=== PATIENT | male | born 1960 | race Caucasian/White ===

== ENCOUNTER 2018-01-27 17:20 | Inpatient (IN) | payer OTHER ==
[~2018-01-27] VITALS: Ht 185.4 cm; Wt 113.4 kg
--- NOTE | 2018-01-27 17:30 | NUR ---
PATIENT BIB AFTER CALLED 911 AFTER PATIENT ADMITTED TO [facility]DOSING ON [facility] AND DRANK A BOTTLE OF WISKEY IN A SUICIDE ATTEMPT. PATIENT CONFIRMED THIS INFORMATION. PATIENT LETHARGIC ALERT TO SELF AND WHY HE IS HERE. PATIENT IS COVERED IN VOMIT AND STATES HE VOMITED 2 HOURS AFTER INGESTING PILLS/DRINK. [employer] EMERGENCY SERVICES MANAGER IV INSERTED LEFT HAND #20 PATENT. AT BEDSIDE
[2018-01-27 17:53] LABS: BASOPHILS # (AUTO) 0.1 /CMM (0.0-0.2); BASOPHILS % (AUTO) 0.7 % (0.0-2.0); EOSINOPHILS % (AUTO) 0.7 % (0.0-6.0); HEMATOCRIT 49 % (39-51); HEMOGLOBIN 16.5 g/dL (13.5-17.5); LYMPHOCYTES # (AUTO) 3.5 /CMM (0.8-4.8); MEAN CORPUSCULAR HGB CONC 34 g/dl (31.0-36.0); MEAN CORPUSCULAR VOLUME 97 fL (80-96); MONOCYTES # (AUTO) 0.8 /CMM (0.1-1.30); MONOCYTES % (AUTO) 6.4 % (2.0-12.0); NEUTROPHILS # (AUTO) 8.1 /CMM (1.8-8.9); NEUTROPHILS % (AUTO) 64.2 % (43.0-81.0); PLATELET COUNT (AUTO) 254 /CMM (150-450); RDW COEFFICIENT OF VARIATION 12.5 (11.5-15.0); RED BLOOD CELL COUNT(AUTO) 5.11 MIL/uL (4.5-6.0); WHITE BLOOD COUNT (AUTO) 12.6 K/uL (4.3-11.0)
[2018-01-27] MEDS ORDERED: IV NS 0.9% 1,000 ML BAG IV ONE (18:00)
[2018-01-27] MEDS ORDERED: ONDANSETRON HCL/PF 4 MG/2 ML VIAL IVP ONE (18:00)
--- NOTE | 2018-01-27 18:00 | NUR ---
PATIENT PLACED ON 3LPM NASAL CANNULA. ROOM AIR 84-87%. ON 3LPM NC SATURATING 96% AND ABOVE
[2018-01-27] MEDS ORDERED: ONDANSETRON HCL/PF 4 MG/2 ML VIAL ONE (18:09)
[2018-01-27 18:11] LABS: TROPONIN I < 0.017 ng/mL (0.00-0.056)
[2018-01-27 18:12] LABS: ALANINE AMINOTRANSFERASE 55 U/L (12-78); ALCOHOL, BLOOD 157 mg/dL (0-0); ALKALINE PHOSPHATASE 69 U/L (46-116); ASPARTATE AMINOTRANSFERASE 35 U/L (15-37); BILIRUBIN,DIRECT 0.1 mg/dL (0.0-0.2); BILIRUBIN,TOTAL 0.6 mg/dL (0.2-1.0); CALCIUM, SERUM 9.1 mg/dL (8.5-10.1); CARBON DIOXIDE 21 mmol/L (21-32); CHLORIDE 106 mmol/L (98-107); CREATININE 1.1 mg/dL (0.6-1.3); GLUCOSE 150 mg/dL (74-106); POTASSIUM 3.5 mmol/L (3.5-5.1); SODIUM SERUM 142 mmol/L (136-145); TOTAL PROTEIN, SERUM 7.8 g/dL (6.4-8.2); UREA NITROGEN, BLOOD 18 mg/dL (7-18)
[2018-01-27 18:13] LABS: SALICYLATE 1.1 mg/dL (2.8-20.0)
[2018-01-27 18:14] LABS: ACETAMINOPHEN < 2 ug/ml (10-30)
--- NOTE | 2018-01-27 19:00 | NUR ---
URINE SAMPLE COLLECTED. I&OUT CATH. BED BATH COMPLETED. PATIENT LETHARGIC. ORIENTED TO SELF AND WHY HE IS IN HOSPITAL.
--- NOTE | 2018-01-27 19:23 | NUR ---
CARE ENDORSED TO RN FOR LORENZO. FAMILY AT BEDSIDE. PATIENT MORE ALERT AT THIS TIME. TOLERATING NC LOW FLOW WELL. ORAL CARE COMPLETED AGAIN
--- NOTE | 2018-01-27 19:29 | NUR ---
CALLED [facility] FOR PANEL CALL AND DR WILLIAM CESAR WAS PAGED
--- NOTE | 2018-01-27 19:30 | NUR ---
RECEIVED REPORT FROM ZULEIMA REDDY FOR LORENZO.
--- NOTE | 2018-01-27 19:36 | NUR ---
AT BEDSIDE. PATIENT TO BE ADMITTED TO [facility].
[2018-01-27 19:41] LABS: APPEARANCE,URINE Clear (CLEAR); BILIRUBIN,URINE SMALL (NEGATIVE); BLOOD, URINE Small Ery/uL (NEGATIVE); COLOR,URINE Yellow (YELLOW); KETONES,URINE Negative (NEGATIVE); LEUKOCYTE ESTERASE ,URINE Negative (NEGATIVE); NITRITE, URINE Negative (NEGATIVE); PH,URINE 5.5 (5.0-8.0); PROTEIN,URINE Trace mg/dl (NEGATIVE); UGLUCOSE Negative (NEGATIVE); UROBILINOGEN,URINE 0.2 EU/dL (0.2)
--- NOTE | 2018-01-27 19:48 | NUR ---
CALLED NURSING MANAGER CAFE AND REQUESTED A [facility] BED
[2018-01-27 20:00] VITALS: BP 122/77
[2018-01-27] MEDS ORDERED: MAGNESIUM HYDROXIDE 30 ML UDC PO PRN (20:00)
[2018-01-27] MEDS ORDERED: ONDANSETRON HCL/PF 4 MG/2 ML VIAL IVP PRN (20:00)
[2018-01-27] MEDS ORDERED: MAG HYDROX/AL HYDROX/SIMETH 30 ML UDC PO PRN (20:00)
--- NOTE | 2018-01-27 20:04 | NUR ---
PT IS ASS[facility] TO [facility] [id number], DX: [id number], AND ACCEPTING MD: DR THOMAS
[2018-01-27 20:05] LABS: WBC,URINE 0-2 /HPF (0-3)
[2018-01-27 20:06] LABS: BACTERIA,URINE Few /HPF (None Seen); MUCUS,URINE Moderate /LPF (None Seen); SQUAMOUS EPITHELIAL CELL,UR Few /HPF (None Seen)
--- NOTE | 2018-01-27 20:11 | NUR ---
REPORT GIVEN TO CIERRARadha CALLES FOR LORENZO
--- NOTE | 2018-01-27 22:00 | NUR ---
RN NOTES MED RECON DONE. NOTIFIED DR WILLIAM MILLAN FOR REVIEW
[2018-01-27] MEDS ORDERED: SIMV20TA6 PO (22:05)
[2018-01-27] MEDS ORDERED: FLUO-120 PO (22:05)
[2018-01-27] MEDS ORDERED: MECL-102 PO (22:05)
[2018-01-27] MEDS ORDERED: PREG75CA PO (22:05)
[2018-01-27] MEDS ORDERED: HYDR-4354 PO (22:05)
[2018-01-27] MEDS ORDERED: DIAZ10TA4 PO (22:05)
[2018-01-27 22:38] VITALS: BP 122/77
--- NOTE | 2018-01-27 23:00 | NUR ---
RN NOTES SPOKE WITH PAULA PHARMACIST FROM POISON CONTROL. RELAYED PATIENT'S VITAL SIGNS AND MENTAL STATUS WITH NO RECOMMENDATIONS AT THIS TIME.
--- NOTE | 2018-01-27 23:31 | NUR ---
RN NOTES SEEN AND EXAMINED BY DR WILLIAM MILLAN. MD MADE AWARE OF PATIENT'S WISH TO BE DNR/DNI. AWAITING FOR ORDERS.
[2018-01-28] VITALS: BP_SYST 87; BP_DIAS 49; BP_DIAS 69
[2018-01-28] MEDS: IV NS 0.9% 1,000 ML IV PRN ×2 (00:16→22:50)
[2018-01-28 04:00] VITALS: BP 110/65
[2018-01-28 07:13] LABS: BASOPHILS % (AUTO) 0.4 % (0.0-2.0); EOSINOPHILS % (AUTO) 0.7 % (0.0-6.0); HEMATOCRIT 44 % (39-51); HEMOGLOBIN 14.5 g/dL (13.5-17.5); LYMPHOCYTES # (AUTO) 2.6 /CMM (0.8-4.8); LYMPHOCYTES % (AUTO) 24.4 % (20.0-44.0); MEAN CORPUSCULAR HGB CONC 33 g/dl (31.0-36.0); MEAN CORPUSCULAR VOLUME 99 fL (80-96); MONOCYTES # (AUTO) 0.7 /CMM (0.1-1.30); MONOCYTES % (AUTO) 6.3 % (2.0-12.0); NEUTROPHILS # (AUTO) 7.4 /CMM (1.8-8.9); NEUTROPHILS % (AUTO) 68.2 % (43.0-81.0); PLATELET COUNT (AUTO) 208 /CMM (150-450); RDW COEFFICIENT OF VARIATION 13.1 (11.5-15.0); RED BLOOD CELL COUNT(AUTO) 4.43 MIL/uL (4.5-6.0); WHITE BLOOD COUNT (AUTO) 10.8 K/uL (4.3-11.0)
--- NOTE | 2018-01-28 07:15 | NUR ---
[facility]/RN INITIAL NOTES RECEIVED PT IN BED, A/O X4, TOLERATING ROOM AIR WELL, NO SOB NOTED. DENIES ANY PAIN AT THIS TIME. NO VERBALIZATION OF SUICIDAL IDEATION AT THIS TIME. SINUS ELENO, HR 50S ON TELEMONITOR. WITH ONGOING IVF NS AT 75 ML/HR INFUSING WELL ON RHAND. WITH INTACT LHAND SL. SAFETY MEASURES IN PLACED. CALL LIGHT WITHIN REACH WILL CONT TO MONITOR PER ENDORSEMENT PT IS TO BE MOVE TO ROOM 114-1 FOR 1:1 SITTER. WILL FOLLOW
[2018-01-28 07:28] LABS: CALCIUM, SERUM 8.2 mg/dL (8.5-10.1); CREATININE 0.8 mg/dL (0.6-1.3); MAGNESIUM 1.9 mg/dL (1.8-2.4); PHOSPHORUS 2.3 mg/dL (2.5-4.9); POTASSIUM 3.8 mmol/L (3.5-5.1)
[2018-01-28 07:31] LABS: THYROID STIMULATING HORMONE 0.777 uIU/mL (0.358-3.74)
--- NOTE | 2018-01-28 07:45 | NUR ---
RN NOTES PT MADE AWARE FOR ROOM CHANGE. PT AGREED. PT WAS MOVED TO ROOM 114-1 VIA BED.
[2018-01-28 08:00] VITALS: BP 105/66
[2018-01-28] MEDS: PANTOPRAZOLE 40 MG TABLET.DR PO SCH (08:11)
--- NOTE | 2018-01-28 11:15 | NUR ---
Social service consult requested by CIERRARadha Culver for intentional overdose. Pt. is a 57 year old male who was admitted to [facility] for overdose on 30 pills of Lyrica and drinking a bottle of whisky. Pt's had just returned from vacation and found the pt. lying down unresponsive. SW met with pt. bedside. Pt. is alert and oriented x 3. Pt. has a sitter bedside. Pt. had the bedsheet covering half of his face and had his eyes closed the entire time during the assessment. Pt. was cooperative and forthcoming during the assessment. Pt. states he is having marital problems/stress and could not cope anymore and overdosed intentionally. Pt. has two girls age 18 and 19. Pt. is currently unemployed. Pt. has not been to couples therapy. Pt. stated he has seen a therapist and psychiatrist in the past. Pt. has a diagnosis of Depression and Anxiety and takes Prozac and Valium. Pt. also reports to have a dropped foot and takes Lyrica (75mg). Pt. is currently denying suicidal ideations and hallucinations at this time. Pt. has been drinking vodka and whiskey lately as a coping mechanism to deal with the marital strife. SW informed pt. he will be seen by a psychiatrist. ordnance equipment worker is available, if needed.
[2018-01-28 12:00] VITALS: BP 124/72
--- NOTE | 2018-01-28 12:00 | NUR ---
RN NOTES LHAND IV WAS PULLED OUT. IV CATH INTACT. PRESSURE DRESSING WAS PLACED. NO SIGNS OF BLEEDING NOTED. WILL CONT TO MONITOR
[2018-01-28] MEDS ORDERED: K PHOS NEUTRAL 250 MG TABLET PO ONE (13:00)
--- NOTE | 2018-01-28 14:15 | NUR ---
RN NOTES FOLLOW UP MED RECON WITH DR JURADO, PSYCH CONSULT FAXED TO [facility], UNDER DR HINTON
--- NOTE | 2018-01-28 15:09 | NUR ---
RN NOTES RECEIVED CALL FROM [facility] RN. PER RN PT WILL BE SEEN BY DR HINTON TOMORROW
[2018-01-28 16:00] VITALS: BP 118/60
--- NOTE | 2018-01-28 19:04 | NUR ---
RN NOTES FOLLOW UP WITH DR JURADO RE: HOME MEDS RECON AND PT WISHES TO GET LYRICA, PER CRACKLING PRESS OPERATOR OK TO RESUME LYRICA
--- NOTE | 2018-01-28 19:08 | NUR ---
RN NOTES PT IN STABLE CONDITION. NO ACUTE CHANGES NOTED THROUGHOUT SHIFT. SAFETY MEASURES OBSERVED AT ALL TIMES. ALL NEEDS ANTICIPATED. ENDORSED TO PM SHIFT RN FOR LORENZO
--- NOTE | 2018-01-28 19:13 | NUR ---
TD RN NOTES RECEIVED PT ON BED. A/OX 4. ON ROOM AIR, NO RESPIRATORY DISTRESS NOTED. ON TELE MONITOR SR 69. IV ACCESS ON RIGHT HAND G20 WITH IV FLUID. IV ACCESS PATENT AND INTACT. HEAD OF BED ELEVATED. SIDE RAILS UP. CALL LIGHT WITHIN REACH. BED ALARM ON. WILL CONTINUE TO MONITOR PT CLOSELY.
[2018-01-28] MEDS: PREGABALIN 25 MG CAPSULE PO SCH (19:46)
[2018-01-28 20:00] VITALS: BP 118/72
[2018-01-29] VITALS: BP 96/45
[2018-01-29 04:00] VITALS: BP 80/45
--- NOTE | 2018-01-29 05:03 | NUR ---
TD RN NOTES PAGED SHEET PILE DRIVER OPERATOR FOR BP OF 80/45MMH AND HEART RATE OF 48. AWAITING CALL BACK.
--- NOTE | 2018-01-29 05:19 | NUR ---
TD RN NOTES HARDWARE TECHNICIAN DR ORDERED 500NS BOLUS. WILL CONTINUE TO MONITOR
[2018-01-29] MEDS ORDERED: IV NS 0.9% 500 ML IV ONE (05:30)
[2018-01-29 06:11] VITALS: BP 99/49
[2018-01-29 06:22] LABS: BASOPHILS % (AUTO) 0.6 % (0.0-2.0); EOSINOPHILS % (AUTO) 1.2 % (0.0-6.0); HEMATOCRIT 43 % (39-51); LYMPHOCYTES # (AUTO) 2.9 /CMM (0.8-4.8); LYMPHOCYTES % (AUTO) 39.6 % (20.0-44.0); MEAN CORPUSCULAR HGB CONC 33 g/dl (31.0-36.0); MEAN CORPUSCULAR VOLUME 99 fL (80-96); MONOCYTES # (AUTO) 0.5 /CMM (0.1-1.30); MONOCYTES % (AUTO) 6.6 % (2.0-12.0); NEUTROPHILS # (AUTO) 3.8 /CMM (1.8-8.9); PLATELET COUNT (AUTO) 183 /CMM (150-450); RDW COEFFICIENT OF VARIATION 13.4 (11.5-15.0); RED BLOOD CELL COUNT(AUTO) 4.29 MIL/uL (4.5-6.0); WHITE BLOOD COUNT (AUTO) 7.4 K/uL (4.3-11.0)
--- NOTE | 2018-01-29 06:22 | NUR ---
TD RN NOTES BLOOD PRESSURE 99/49. HEART RATE OF 50. NO COMPLAINTS OF DIZZINESS, HEADACHE OR NAUSEA. WILL CONTINUE TO MONITOR PT CLOSELY.
[2018-01-29 06:47] LABS: CALCIUM, SERUM 8.1 mg/dL (8.5-10.1); MAGNESIUM 1.9 mg/dL (1.8-2.4); PHOSPHORUS 2.9 mg/dL (2.5-4.9); POTASSIUM 3.9 mmol/L (3.5-5.1)
--- NOTE | 2018-01-29 07:19 | NUR ---
TD RN NOTES NO ACUTE CHANGES NOTED DURING THE SHIFT. PROVIDED COMFORT AND SAFETY. DUE MEDS GIVEN. WILL ENDORSE TO THE AM NURSE FOR CONTINUITY OF CARE.
[2018-01-29 08:00] VITALS: BP 122/63
[2018-01-29] MEDS: PREGABALIN 25 MG CAPSULE PO SCH (08:32)
[2018-01-29] MEDS: PANTOPRAZOLE 40 MG TABLET.DR PO SCH (08:32)
[2018-01-29] MEDS ORDERED: Fluoxetine 10 mg capsule PO SCH (09:00)
[2018-01-29] MEDS ORDERED: HYDROCODONE/APAP 10/325MG 1 EA TABLET PO PRN (10:30)
[2018-01-29] MEDS ORDERED: MECLIZINE HCL 25 MG TABLET PO PRN (10:30)
[2018-01-29 12:00] VITALS: BP 110/72
[2018-01-29] MEDS ORDERED: DIAZEPAM 10 MG TABLET PO SCH (12:51)
[2018-01-29] MEDS ORDERED: DIAZEPAM 10 MG TABLET PO PRN (13:00)
--- NOTE | 2018-01-29 13:00 | NUR ---
RN CLOSING NOTE PATIENT DISCHARGED. PAPERWORK COMPLETED AND SIGNED. IV SITE AND ID BAND REMOVED. LEFT WITH FAMILY.
--- NOTE | 2018-01-29 15:02 | NUR ---
CAROLYN and case management director Leandra met with pt. bedside to discuss discharge plan. Per Dr. Freire, pt. has been referred to [facility]. Pt. informed CAROLYN and Leandra that he is willing to go if they can also assist him with his depression. Pt. called his while CAROLYN and manager reporting Leandra were present. CAROLYN and Leandra spoke with pt's who wants the pt. to attend an inpatient facility that will deal with his substance abuse and alcohol abuse. Pt. denies being an alcoholic but admits he uses alcohol to cope with his depression that has been going on for the past 7 years. CAROLYN gave pt's Rosalinda contact number to [facility] per her request. She will contact them and follow up with CAROLYN. CAROLYN gave her call back number.
[2018-01-29] MEDS ORDERED: SIMVASTATIN 20 MG TABLET PO SCH (18:00)
[2018-01-30] MEDS ORDERED: FLUOXETINE HCL 20 MG CAPSULE PO SCH (09:00)
--- NOTE | 2018-01-30 10:19 | NUR ---
CAROLYN received a call from pt's Gloria upset because pt. was discharged yesterday. Gloria informed CAROLYN she is very upset that he was discharged in spite of the conversation CAROLYN and family service caseworker Leandra had with the pt and herself in regarding getting pt. to an appropriate placement for alcohol and depression. Gloria began to cry. CAROLYN offered pt. emotional support. Gloria informed CAROLYN that pt. was told he is discharged and left the hospital. CAROLYN informed Gloria she was not aware that pt. had left until this morning. CAROLYN gave Gloria the following resources to follow up for the pt: [facility] and [facility] . CAROLYN informed Gloria to call back if she has any further questions.
== END 2018-01-29 13:00 | disposition home or self-care (01) | DRG 917 ==
LOC: ER 17:23 → TELE-TD 20:30 → TELE1 01-29 09:04
DX: T42.6X1A Poisoning by other antiepileptic and sedative-hypnotic drugs, accidental (unintentional), initial encounter (principal); G92 Toxic encephalopathy; N17.0 Acute kidney failure with tubular necrosis; F11.20 Opioid dependence, uncomplicated; F13.20 Sedative, hypnotic or anxiolytic dependence, uncomplicated; Y92.009 Unspecified place in unspecified non-institutional (private) residence as the place of occurrence of the external cause; F32.9 Major depressive disorder, single episode, unspecified; I10 Essential (primary) hypertension; E66.9 Obesity, unspecified; T51.91XA Toxic effect of unspecified alcohol, accidental (unintentional), initial encounter; M54.40 Lumbago with sciatica, unspecified side; F10.229 Alcohol dependence with intoxication, unspecified; Y90.6 Blood alcohol level of 120-199 mg/100 ml; E86.0 Dehydration; E83.39 Other disorders of phosphorus metabolism; D72.829 Elevated white blood cell count, unspecified
CPT/HCPCS: 36415; 71045-TC; 73630-TC; 80048-TC; 80061-TC; 80076-TC; 80305; 81000-TC; 83735-TC; 84100-TC; 84443-TC; 84484-TC; 85025-TC; 87081-TC; 93307-TC; A4606; G0378; G0480; J2405; J7030; J7040; Z7610